=== PATIENT | male | born 1940 | race Two or more races ===

== ENCOUNTER → 2017-07-25 | Emergency (ER) | payer OTHER ==
[~2017-07-25] VITALS: Ht 185.4 cm; Wt 85.7 kg
[~2017-07-25] MED LIST: MUCINEX D1 TAB.SR1 PO; VASOTEC20 M1; ZITHROMAX500 MG PO; ZOCOR80 MG
== END | disposition left against medical advice (07) ==
LOC: ER 15:02
DX: Z53.20 Procedure and treatment not carried out because of patient's decision for unspecified reasons (principal)

== ENCOUNTER 2018-07-31 11:38 | Emergency (ER) | payer OTHER ==
[~2018-07-31] VITALS: Ht 185.4 cm; Wt 87.5 kg
[2018-07-31] MEDS ORDERED: SKELAXIN800 MG PO (16:12)
[2018-07-31] MEDS ORDERED: CELEBREX200MG PO (16:12)
== END 2018-07-31 17:52 | disposition home or self-care (01) ==
LOC: ER 11:38
DX: M46.82 Other specified inflammatory spondylopathies, cervical region (principal)

== ENCOUNTER 2019-01-26 18:24 | Emergency (ER) | payer OTHER ==
[~2019-01-26] VITALS: Ht 182.9 cm; Wt 83.9 kg
[~2019-01-26 18:24] MED LIST changes: +CELEBREX200MG PO; +SKELAXIN800 MG PO
[2019-01-26] MEDS ORDERED: PREDNISONE20 MG PO (21:21)
[2019-01-26] MEDS ORDERED: CYCLOBENZAPRINE10 MG PO (21:21)
== END 2019-01-26 21:32 ==
LOC: ER 18:24
DX: M50.30 Other cervical disc degeneration, unspecified cervical region (principal)

== ENCOUNTER 2019-03-24 13:04 | Outpatient (CLI) | payer OTHER ==
[~2019-03-24 13:04] MED LIST changes: +CYCLOBENZAPRINE10 MG PO; +PREDNISONE20 MG PO
== END 2019-03-24 13:07 | disposition home or self-care (01) ==
LOC: RAD 13:04
DX: I10 Essential (primary) hypertension (principal)

== ENCOUNTER 2023-06-02 13:51 | Emergency (ER) | payer OTHER ==
[~2023-06-02] VITALS: Ht 182.9 cm; Wt 81.6 kg
[~2023-06-02 13:51] MED LIST changes: +AMLODIPINE BESYL5 MG PO; +COLACE100 MG PO; +ELIQUIS5 MG PO; +INTEGRA PLUS C1 EACH PO; +KLOR-CON/EF 2525 MEQ PO; +LIPITOR40 M1 PO; +LOSARTAN POTAS100 MG PO; +MEMANTINE HCL E28 MG PO; +NAMENDA10 MG PO; +PANTOPRAZOLE SO20 MG PO; +PROTEINEX-18 LI30 ML PO; +SERTRALINE HCL50 MG PO; +SERTRALINE20 MG/1 ML PO; +SIMVASTATIN80 MG PO
[2023-06-02] MEDS ORDERED: LOSARTAN POTAS100 MG PO (14:37)
[2023-06-02] MEDS ORDERED: OLANZAPINE2.5 MG PO (14:37)
[2023-06-02] MEDS ORDERED: ENALAPRIL M1 MG/1 ML PO (14:38)
[2023-06-02] MEDS ORDERED: MEMANTINE HCL5 MG PO (14:39)
[2023-06-02] MEDS ORDERED: SERTRALINE20 MG/1 ML PO (14:39)
[2023-06-02] MEDS ORDERED: SIMVASTATIN80 MG PO (14:39)
[2023-06-02 16:14] LABS: HEMOGLOBIN 13.9 g/dL (13-16.00); MEAN CELL VOLUME 86.2 fL (80.0-100.00); MEAN CORPUSCULAR HEMOGLOBIN 29.2 pg (27.00-32.0); MEAN CORPUSCULAR HGB CONC 33.9 g/dl (32.0-36.0); PLATELET COUNT 147 K/uL (150-450); RED BLOOD COUNT 4.76 M/uL (4.00-6.00); RED CELL DISTRIBUTION WIDTH 15.2 % (11.5-14.5)
[2023-06-02 16:33] LABS: INR 1.12; PROTHROMBIN TIME 11.7 SECONDS (9.0-11.5)
[2023-06-02 16:45] LABS: ALBUMIN 3.6 gm/dL (3.4-5.0); BILIRUBIN TOTAL 0.46 mg/dL (0.3-1.2); BILIRUBIN,CONJUGATED 0.13 mg/dL (0.0-0.2); BILIRUBIN,UNCONJUGATED 0.33 mg/dL (0.0-0.6); CALCIUM 9.5 mg/dL (8.5-10.1); CREATININE SERUM 1.37 mg/dL (0.70-1.30); GFR 49.5; POTASSIUM 3.85 mEq/L (3.5-5.1); TOTAL PROTEIN 7.7 gm/dL (6.4-8.2)
[2023-06-02 18:06] LABS: D DIMER 20.71 MG/L; PARTIAL THROMBOPLASTIN TIME 24.3 SECONDS (22.0-34.0)
== END 2023-06-02 21:49 | disposition home or self-care (01) ==
LOC: ER
PROVIDERS: General Practice
DX: R55 Syncope and collapse (principal); I10 Essential (primary) hypertension; E78.00 Pure hypercholesterolemia, unspecified; Z95.0 Presence of cardiac pacemaker; K59.00 Constipation, unspecified; Z85.46 Personal history of malignant neoplasm of prostate; K62.89 Other specified diseases of anus and rectum

== ENCOUNTER 2023-06-08 15:50 | Emergency (ER) | payer OTHER ==
[~2023-06-08] VITALS: Ht 188 cm; Wt 77.1 kg
[~2023-06-08 15:50] MED LIST changes: +ENALAPRIL M1 MG/1 ML PO; +MEMANTINE HCL5 MG PO; +OLANZAPINE2.5 MG PO
[2023-06-08 18:07] LABS: HEMOGLOBIN 13.5 g/dL (13-16.00); MEAN CELL VOLUME 84.6 fL (80.0-100.00); MEAN CORPUSCULAR HEMOGLOBIN 28.7 pg (27.00-32.0); MEAN CORPUSCULAR HGB CONC 33.9 g/dl (32.0-36.0); PLATELET COUNT 158 K/uL (150-450); RED BLOOD COUNT 4.72 M/uL (4.00-6.00); RED CELL DISTRIBUTION WIDTH 15.6 % (11.5-14.5)
[2023-06-08 18:25] LABS: CALCIUM 9.3 mg/dL (8.5-10.1); CREATININE SERUM 1.19 mg/dL (0.70-1.30); GFR 58.24; POTASSIUM 4.14 mEq/L (3.5-5.1)
[2023-06-08 18:46] LABS: PH,URINE 5.5 (5.0-8.0); URINE APPEARANCE Clear; URINE BILIRRUBIN Small (NEGATIVE); URINE BLOOD Negative; URINE COLOR Dark Yellow; URINE GLUCOSE Negative (NEGATIVE); URINE LEUKOCYTE Negative; URINE NITRATE Negative; URINE PROTEIN 30 (NEGATIVE)
[2023-06-08 18:50] LABS: URINE BACTERIA 341.4 uL (0.0-1933); URINE EPITHELIAL CELLS 7.5 uL (0.0-38.8); URINE WBC 7.4 uL (0.0-23.2)
[2023-06-08 20:16] LABS: URINE CRYSTALS NEGATIVE /HPF; URINE YEAST NEGATIVE /hpf
[2023-06-08 20:17] LABS: URINE MUCUS SCANT
== END 2023-06-09 01:13 | disposition home or self-care (01) ==
LOC: ER 15:50
PROVIDERS: General Practice
DX: R00.2 Palpitations (principal); E78.00 Pure hypercholesterolemia, unspecified; I10 Essential (primary) hypertension; F01.50 Vascular dementia, unspecified severity, without behavioral disturbance, psychotic disturbance, mood disturbance, and anxiety; E86.0 Dehydration
CPT/HCPCS: 36415; 71045; 96365; 96366; 99284; J3490; J7042

== ENCOUNTER 2023-06-12 12:06 | Emergency (ER) | payer OTHER ==
[~2023-06-12] VITALS: Ht 182.9 cm; Wt 75.3 kg
[2023-06-12] MEDS ORDERED: ARIPIPRAZOLE2 MG PO (12:29)
[2023-06-12 15:48] LABS: HEMOGLOBIN 11.4 g/dL (13-16.00); MEAN CELL VOLUME 84.7 fL (80.0-100.00); MEAN CORPUSCULAR HEMOGLOBIN 28.3 pg (27.00-32.0); MEAN CORPUSCULAR HGB CONC 33.5 g/dl (32.0-36.0); PLATELET COUNT 185 K/uL (150-450); RED BLOOD COUNT 4.02 M/uL (4.00-6.00); RED CELL DISTRIBUTION WIDTH 15.1 % (11.5-14.5)
[2023-06-12 16:10] LABS: INR 1.22; PARTIAL THROMBOPLASTIN TIME 32.5 SECONDS (22.0-34.0); PROTHROMBIN TIME 12.6 SECONDS (9.0-11.5)
[2023-06-12 16:23] LABS: ALBUMIN 2.5 gm/dL (3.4-5.0); BILIRUBIN TOTAL 0.4 mg/dL (0.3-1.2); BILIRUBIN,CONJUGATED 0.12 mg/dL (0.0-0.2); BILIRUBIN,UNCONJUGATED 0.28 mg/dL (0.0-0.6); CALCIUM 8.7 mg/dL (8.5-10.1); CREATININE SERUM 0.93 mg/dL (0.70-1.30); GFR 77.41; POTASSIUM 3.57 mEq/L (3.5-5.1)
[2023-06-12 17:17] LABS: ABG PH 7.472 (7.35-7.45)
[2023-06-12 17:18] LABS: ABG PO2 74.7 mmHg (80-100); ABG pCO2 33.9 mmHg (35-45); BASE EXCESS 1.2 mmol/l; BICARBONATE 24.2 mmol/l (23-25); SaO2 95.9 %; Tco2 25.2 mmol/l; allen test SATISFACTORY; puncture site RADIAL LEFT
[2023-06-12 17:23] LABS: o2 21 %
== END 2023-06-13 02:02 | disposition home or self-care (01) ==
LOC: ER 12:06
PROVIDERS: General Practice
DX: R41.82 Altered mental status, unspecified (principal); F03.90 Unspecified dementia, unspecified severity, without behavioral disturbance, psychotic disturbance, mood disturbance, and anxiety; Z74.01 Bed confinement status; Z86.73 Personal history of transient ischemic attack (TIA), and cerebral infarction without residual deficits; J90 Pleural effusion, not elsewhere classified

== ENCOUNTER 2023-07-12 08:31 | Outpatient (CLI) | payer OTHER ==
[~2023-07-12 08:31] MED LIST changes: +ARIPIPRAZOLE2 MG PO
== END 2023-07-12 08:43 | disposition home or self-care (01) ==
LOC: TOM 08:31
PROVIDERS: ATTEND Internal Medicine
DX: I67.9 Cerebrovascular disease, unspecified (principal); F01.50 Vascular dementia, unspecified severity, without behavioral disturbance, psychotic disturbance, mood disturbance, and anxiety; I69.951 Hemiplegia and hemiparesis following unspecified cerebrovascular disease affecting right dominant side

== ENCOUNTER 2023-10-22 09:11 | Emergency (ER) | payer OTHER ==
[~2023-10-22] VITALS: Ht 177.8 cm; Wt 81.6 kg
[~2023-10-22 09:11] MED LIST changes: +ARICEPT5 MG PO; +BUSPIRONE HCL5 MG PO; +CHLORTHALIDONE25 MG PO; +CLONAZEPAM0.5 MG PO; +ELIQUIS2.5 MG PO; +ENALAPRIL MALEA10 MG PO; +HYOSCYAMINE0.125 M1 PO; +MECLIZINE HCL25 M1 PO; +MECLIZINE HCL25 MG PO; +OLANZAPINE-FLU1 EAC4 PO; +PEPCID AC20 MG PO; +SIMVASTATIN5 MG PO; +VASOTEC20 M1 PO; +ZOCOR80 MG PO
[2023-10-22 09:56] LABS: HEMATOCRIT 33.1 % (39.0-48.0); HEMOGLOBIN 11.1 g/dL (13-16.00); MEAN CELL VOLUME 86.5 fL (80.0-100.00); MEAN CORPUSCULAR HEMOGLOBIN 29.2 pg (27.00-32.0); MEAN CORPUSCULAR HGB CONC 33.7 g/dl (32.0-36.0); PLATELET COUNT 180 K/uL (150-450); RED BLOOD COUNT 3.82 M/uL (4.00-6.00); RED CELL DISTRIBUTION WIDTH 15.1 % (11.5-14.5)
[2023-10-22 10:30] LABS: BILIRUBIN TOTAL 0.27 mg/dL (0.3-1.2); CALCIUM 8.9 mg/dL (8.5-10.1); CREATININE SERUM 1.2 mg/dL (0.70-1.30); GFR 57.54; GLOBULINA 4.1 G/DL (2.4-3.5); POTASSIUM 3.9 mEq/L (3.5-5.1); TOTAL PROTEIN 7.1 gm/dL (6.4-8.2)
== END 2023-10-22 11:41 | disposition home or self-care (01) ==
LOC: ER 09:11
PROVIDERS: General Practice
DX: R55 Syncope and collapse (principal)

== ENCOUNTER 2023-10-26 07:14 | Emergency (ER) | payer OTHER ==
[~2023-10-26] VITALS: Ht 170.2 cm; Wt 68.0 kg
[2023-10-26] MEDS ORDERED: RISPERDAL0.5 MG (07:24)
[2023-10-26 09:05] LABS: HEMATOCRIT 32.7 % (39.0-48.0); HEMOGLOBIN 10.8 g/dL (13-16.00); MEAN CELL VOLUME 85.9 fL (80.0-100.00); MEAN CORPUSCULAR HEMOGLOBIN 28.5 pg (27.00-32.0); MEAN CORPUSCULAR HGB CONC 33.2 g/dl (32.0-36.0); PLATELET COUNT 180 K/uL (150-450); RED CELL DISTRIBUTION WIDTH 15.4 % (11.5-14.5)
[2023-10-26 09:40] LABS: CALCIUM 9.2 mg/dL (8.5-10.1); CREATININE SERUM 1.28 mg/dL (0.70-1.30); GFR 53.41; POTASSIUM 3.94 mEq/L (3.5-5.1)
== END 2023-10-26 13:32 | disposition home or self-care (01) ==
LOC: ER 07:14
PROVIDERS: General Practice
DX: R53.81 Other malaise (principal); T50.905A Adverse effect of unspecified drugs, medicaments and biological substances, initial encounter

== ENCOUNTER 2024-01-18 02:55 | Emergency (ER) | payer OTHER ==
[~2024-01-18] VITALS: Ht 188 cm; Wt 81.6 kg
[~2024-01-18 02:55] MED LIST changes: +RISPERDAL0.5 MG
[2024-01-18 04:41] LABS: HEMATOCRIT 38.7 % (39.0-48.0); HEMOGLOBIN 12.9 g/dL (13-16.00); MEAN CORPUSCULAR HEMOGLOBIN 27.9 pg (27.00-32.0); MEAN CORPUSCULAR HGB CONC 33.3 g/dl (32.0-36.0); PLATELET COUNT 136 K/uL (150-450); RED BLOOD COUNT 4.61 M/uL (4.00-6.00); RED CELL DISTRIBUTION WIDTH 15.2 % (11.5-14.5)
== END 2024-01-18 12:51 | disposition home or self-care (01) ==
LOC: ER 02:55
DX: J06.9 Acute upper respiratory infection, unspecified (principal); G30.8 Other Alzheimer's disease; F02.80 Dementia in other diseases classified elsewhere, unspecified severity, without behavioral disturbance, psychotic disturbance, mood disturbance, and anxiety; I10 Essential (primary) hypertension; Z20.822 Contact with and (suspected) exposure to COVID-19

== ENCOUNTER 2025-02-11 14:23 | Inpatient (IN) | payer OTHER ==
[~2025-02-11] VITALS: Ht 264.2 cm; Wt 81.6 kg
--- NOTE | 2025-02-11 14:32 | NUR ---
SE RECIBE PACIENTE EN AMBULANCIA ALERTA Y DESORIENTADO X3; PARAMEDICO INDICAN QUE LO TRAEN POR DOLRO ABDOMINAL, VOMITOS X1 Y DISTENCION ADOMINAL. SE REALIZA EKG Y KRISTEN DE SIGNOS VITALES. PACIENTE PRESETANDO SPO2 94% DRA. MULLINS INDICA COLOCAR CANULA NASAL @2LT/MIN.
[2025-02-11] MEDS ORDERED: FAMOtidine 10 MG/ML (4ML VIAL) IV ONE (14:45)
[2025-02-11] MEDS ORDERED: 0.9 % SODIUM CHLORIDE 1,000 ML IV ONE (14:45)
[2025-02-11] MEDS ORDERED: FAMOTIDINE/PF 20 MG/2 ML VIAL ONE (15:09)
--- NOTE | 2025-02-11 15:10 | NUR ---
SE EDUCA ACERCA DE TX ORDENADO; SE CANALIZA Y COLECTAN MUESTRAS DE LABORATORIO MEDIANTE MEDIDAS ASEPTICAS. SE ADMINISTRNA MEDICAMENTOS ADITI ORDEN MEDICA.
[2025-02-11 15:34] LABS: ALT/SGPT 21.0 U/L (12-78); AST/SGOT 21.0 U/L (15-37); BILIRUBIN TOTAL 0.58 mg/dL (0.3-1.2); BUN CREA RATIO 21.0 (7.0-25.0); CREATININE SERUM 1.24 mg/dL (0.70-1.30); GFR 55.27; GLOBULINA 4.4 G/DL (2.4-3.5); GLUCOSE FASTING 123.0 mg/dL (65-100); OSMOLALITY SERUM 291.0 MOSM/KG (275-295)
[2025-02-11 15:47] LABS: BASO % 0.4 % (0.1-1.2); EOS # 0.09 (0.04-0.54); EOS % 0.7 % (0.7-7.0); LYMPH # 1.59 (1.18-3.74); LYMPH % 12.4 % (19.3-53.1); MEAN PLATELET VOLUME 10.30 fl (9.4-12.4); MONO # 0.92 (0.24-0.82); MONO % 7.2 % (4.7-12.5); NEUT # 10.11 (1.56-6.13); NEUT % 78.5 % (34.0-71.1); RED CELL DISTRIBUTION WIDTH 14.8 % (11.6-14.4)
[2025-02-11 15:55] LABS: COVID-19 AG NEGATIVE (NEGATIVE)
[2025-02-11] MEDS ORDERED: CIPROFLOXACIN IN 5 % DEXTROSE 400 MG/200 ML PIGGYBAG IV ONE ×2 (16:00→16:07)
[2025-02-11 16:58] LABS: URINE APPEARANCE Clear; URINE BILIRRUBIN Negative (NEGATIVE); URINE COLOR Yellow; URINE GLUCOSE Negative (NEGATIVE); URINE KETONE Trace (NEGATIVE); URINE LEUKOCYTE Negative; URINE NITRATE Negative; URINE UROBILINOGEN 0.2 E.U./dl
[2025-02-11 17:02] LABS: URINE BACTERIA 16.8 uL (0.0-1933); URINE CAST 0.58 uL (0.0-1.40); URINE EPITHELIAL CELLS 1.6 uL (0.0-38.8); URINE PROTEIN 100 (NEGATIVE); URINE RBC 8.2 uL (0.0-20.8); URINE WBC 4.9 uL (0.0-23.2)
[2025-02-11 17:08] LABS: URINE BLOOD TRACE
[2025-02-11 17:10] LABS: URINE YEAST NEGATIVE /hpf
[2025-02-11] MEDS ORDERED: FAMOTIDINE/PF 20 MG in 0.9 % SODIUM CHLORIDE 8 ML IV PUSH SCH (21:55)
[2025-02-11] MEDS ORDERED: CIPROFLOXACIN IN 5 % DEXTROSE 200 ML IV SCH (21:56)
[2025-02-11] MEDS ORDERED: DONEPEZIL HCL 5 MG TABLET PO SCH (21:57)
[2025-02-11] MEDS ORDERED: ONDANSETRON HCL 4 MG in 0.9 % SODIUM CHLORIDE 50 ML IV PRN (22:00)
[2025-02-11] MEDS ORDERED: 0.9 % SODIUM CHLORIDE 1,000 ML IV SCH (22:00)
[2025-02-11] MEDS ORDERED: ACETAMINOPHEN 500 MG GEL..CAP PO PRN (22:00)
[2025-02-12 03:32] LABS: INR 1.15
[2025-02-12 06:05] LABS: ABG PH 7.331 (7.35-7.45); ABG PO2 113.0 mmHg (80-100); BICARBONATE 21.1 mmol/l (23-25)
[2025-02-12 06:06] LABS: o2 36 %
[2025-02-12 08:27] VITALS: BP 147/82; O2SAT 96
[2025-02-12] MEDS ORDERED: ENOXAPARIN SODIUM 40 MG/0.4 ML SYRINGE SUBCUTANEO SCH (09:00)
[2025-02-12] MEDS ORDERED: RISPERIDONE 0.5 MG TABLET PO SCH (09:00)
[2025-02-12] MEDS ORDERED: AMLODIPINE BESYLATE 5 MG TABLET PO SCH ×2 (09:00→17:00)
[2025-02-12] MEDS ORDERED: BUSPIRONE HCL 5 MG TABLET PO SCH (09:00)
[2025-02-12] MEDS ORDERED: MEMANTINE HCL 5 MG TABLET PO SCH (09:00)
[2025-02-12] MEDS ORDERED: LORazepam 2 MG/ML VIAL IM STA (09:11)
[2025-02-12 10:38] VITALS: O2SAT 90
[2025-02-12] MEDS ORDERED: POTASSIUM BICARBONATE/CIT AC 25 MEQ TABLET.EFF PO NR (11:00)
[2025-02-12 12:30] VITALS: O2SAT 99
[2025-02-12] MEDS ORDERED: DEXTROSE 50 % IN WATER 0.5 G/ML VIAL IV PRN (15:30)
[2025-02-12] MEDS ORDERED: INSULIN LISPRO 1,000 UNIT/10 ML UNITS SUBCUTANEO PRN (15:30)
[2025-02-12] MEDS ORDERED: SODIUM CHLORIDE 0.45 % 1,000 ML IV SCH (15:30)
[2025-02-12] MEDS ORDERED: LOSARTAN POTASSIUM 25 MG TABLET PO SCH (16:15)
[2025-02-12 16:23] VITALS: BP 125/73; O2SAT 96
[2025-02-12] MEDS ORDERED: DOCUSATE SODIUM 100MG CAP PO SCH (17:00)
[2025-02-12] MEDS ORDERED: POLYETHYLENE GLYCOL 3350 17 GM BLIST.PACK PO SCH (17:00)
[2025-02-12 19:25] VITALS: O2SAT 90
[2025-02-12 19:29] LABS: ABG PH 7.371 (7.35-7.45)
[2025-02-12 19:30] LABS: ABG PO2 83.8 mmHg (80-100); BICARBONATE 22.5 mmol/l (23-25)
[2025-02-12 19:31] LABS: o2 21 %
[2025-02-12] MEDS ORDERED: ARIPIPRAZOLE 5 MG PO SCH (21:00)
[2025-02-13 00:35] VITALS: O2SAT 95
[2025-02-13 01:07] VITALS: BP 123/66; O2SAT 97
[2025-02-13 06:29] VITALS: O2SAT 99
[2025-02-13 08:00] VITALS: BP 113/66; O2SAT 98
[2025-02-13 08:30] VITALS: O2SAT 100
[2025-02-13] MEDS ORDERED: [UNRECOGNIZED DRUG - OTHER] PO SCH (09:00)
[2025-02-13] MEDS ORDERED: SITAGLIPTIN PO SCH (09:00)
[2025-02-13] MEDS ORDERED: ATORVASTATIN CALCIUM 10 MG TABLET PO SCH (09:00)
[2025-02-13 17:00] VITALS: BP 124/69; O2SAT 97
[2025-02-14] VITALS (7 sets, daily range): BP systolic 125–133; BP diastolic 74–76; O2SAT 87–99
[2025-02-14 08:52] LABS: ALT/SGPT 15.0 U/L (12-78); AST/SGOT 16.0 U/L (15-37); BILIRUBIN TOTAL 0.58 mg/dL (0.3-1.2); BUN CREA RATIO 10.0 (7.0-25.0); CREATININE SERUM 0.94 mg/dL (0.70-1.30); GFR 76.09; GLOBULINA 3.1 G/DL (2.4-3.5); GLUCOSE FASTING 91.0 mg/dL (65-100); OSMOLALITY SERUM 285.0 MOSM/KG (275-295)
[2025-02-14] MEDS ORDERED: POTASSIUM BICARBONATE/CIT AC 25 MEQ TABLET.EFF PO SCH (09:00)
[2025-02-14 09:04] LABS: BASO % 0.5 % (0.1-1.2); EOS # 0.29 (0.04-0.54); EOS % 4.5 % (0.7-7.0); LYMPH # 1.41 (1.18-3.74); LYMPH % 21.8 % (19.3-53.1); MEAN PLATELET VOLUME 10.30 fl (9.4-12.4); MONO # 0.56 (0.24-0.82); MONO % 8.6 % (4.7-12.5); NEUT # 4.16 (1.56-6.13); NEUT % 64.1 % (34.0-71.1); RED CELL DISTRIBUTION WIDTH 14.1 % (11.6-14.4)
[2025-02-14] MEDS ORDERED: MAGNESIUM SULFATE IN WATER 50 ML IV NR (09:30)
[2025-02-14] MEDS ORDERED: POTASSIUM CHLORIDE 20MEQ/100ML H2O PB IV NR (10:30)
[2025-02-15 00:21] VITALS: BP 122/71; O2SAT 95
[2025-02-15 02:21] VITALS: O2SAT 98
[2025-02-15 06:24] LABS: BASO % 0.5 % (0.1-1.2); EOS # 0.26 (0.04-0.54); EOS % 4.4 % (0.7-7.0); LYMPH # 1.70 (1.18-3.74); LYMPH % 28.8 % (19.3-53.1); MEAN PLATELET VOLUME 10.20 fl (9.4-12.4); MONO # 0.63 (0.24-0.82); MONO % 10.7 % (4.7-12.5); NEUT # 3.27 (1.56-6.13); NEUT % 55.3 % (34.0-71.1); RED CELL DISTRIBUTION WIDTH 14.1 % (11.6-14.4)
[2025-02-15 07:07] LABS: ALT/SGPT 18.0 U/L (12-78); AST/SGOT 27.0 U/L (15-37); BILIRUBIN TOTAL 0.45 mg/dL (0.3-1.2); BUN CREA RATIO 5.0 (7.0-25.0); CREATININE SERUM 0.98 mg/dL (0.70-1.30); GFR 72.52; GLOBULINA 3.0 G/DL (2.4-3.5); GLUCOSE FASTING 123.0 mg/dL (65-100); OSMOLALITY SERUM 285.0 MOSM/KG (275-295)
[2025-02-15 07:45] LABS: BAND MAN 1.0 %; EOSINOPHIL MAN 2.0 %; LYMPHOCYTE MAN 33.0 %; MONOCYTE MAN 5.0 %; NEUTROPHILS MAN 58.0 %
[2025-02-15 08:26] VITALS: BP 161/82; O2SAT 97
[2025-02-15] MEDS ORDERED: POTASSIUM BICARBONATE/CIT AC 25 MEQ TABLET.EFF PO NR (11:32)
[2025-02-15] MEDS ORDERED: POTASSIUM CHLORIDE IN WATER 100 ML IV SCH (13:00)
[2025-02-15 16:00] VITALS: BP 143/78; O2SAT 97
[2025-02-15 18:03] VITALS: O2SAT 97
[2025-02-16] VITALS (8 sets, daily range): BP systolic 130–152; BP diastolic 77–84; O2SAT 95–100
[2025-02-16 07:10] LABS: BASO % 0.5 % (0.1-1.2); EOS # 0.32 (0.04-0.54); EOS % 5.2 % (0.7-7.0); LYMPH # 1.71 (1.18-3.74); LYMPH % 28.0 % (19.3-53.1); MEAN PLATELET VOLUME 9.80 fl (9.4-12.4); MONO # 0.59 (0.24-0.82); MONO % 9.7 % (4.7-12.5); NEUT # 3.43 (1.56-6.13); NEUT % 56.3 % (34.0-71.1); RED CELL DISTRIBUTION WIDTH 14.1 % (11.6-14.4)
[2025-02-16 07:46] LABS: ALT/SGPT 71.0 U/L (12-78); AST/SGOT 144.0 U/L (15-37); BAND MAN 1.0 %; BILIRUBIN TOTAL 0.5 mg/dL (0.3-1.2); BUN CREA RATIO 5.0 (7.0-25.0); CREATININE SERUM 0.83 mg/dL (0.70-1.30); EOSINOPHIL MAN 2.0 %; GFR 87.84; GLOBULINA 3.2 G/DL (2.4-3.5); GLUCOSE FASTING 95.0 mg/dL (65-100); LYMPHOCYTE MAN 21.0 %; MONOCYTE MAN 9.0 %; NEUTROPHILS MAN 65.0 %; OSMOLALITY SERUM 280.0 MOSM/KG (275-295)
[2025-02-16] MEDS ORDERED: MAGNESIUM SULFATE IN WATER 50 ML IV NR (10:35)
[2025-02-16] MEDS ORDERED: POTASSIUM CHLORIDE IN WATER 100 ML IV NR (12:00)
[2025-02-16] MEDS ORDERED: MAGNESIUM HYDROXIDE 30 ML BLIST.PACK PO STA (12:38)
[2025-02-16] MEDS ORDERED: MINERAL OIL 30 ML BLIST.PACK PO STA (12:38)
[2025-02-16] MEDS ORDERED: LACTULOSE 20 G/30 ML BLIST.PACK PO STA (12:38)
[2025-02-16] MEDS ORDERED: NA PHOS,M-B/NA PHOS,DI-BA 1 BOTTLE ENEMA RECTAL NR (12:45)
[2025-02-16] MEDS ORDERED: POTASSIUM PHOS,M-BASIC-D-BASIC 15 MM in 0.9 % SODIUM CHLORIDE 250 ML IV NR (16:00)
[2025-02-17] VITALS (9 sets, daily range): BP systolic 114–163; BP diastolic 67–71; O2SAT 94–99
[2025-02-17 05:56] LABS: ALT/SGPT 95.0 U/L (12-78); AST/SGOT 160.0 U/L (15-37); BILIRUBIN TOTAL 0.4 mg/dL (0.3-1.2); BUN CREA RATIO 6.0 (7.0-25.0); CREATININE SERUM 0.83 mg/dL (0.70-1.30); GFR 87.84; GLOBULINA 3.0 G/DL (2.4-3.5); GLUCOSE FASTING 84.0 mg/dL (65-100); OSMOLALITY SERUM 280.0 MOSM/KG (275-295)
[2025-02-17 07:23] LABS: BASO % 0.2 % (0.1-1.2); EOS # 0.21 (0.04-0.54); EOS % 2.6 % (0.7-7.0); LYMPH # 1.36 (1.18-3.74); LYMPH % 17.0 % (19.3-53.1); MEAN PLATELET VOLUME 9.20 fl (9.4-12.4); MONO # 0.65 (0.24-0.82); MONO % 8.1 % (4.7-12.5); NEUT # 5.75 (1.56-6.13); NEUT % 71.7 % (34.0-71.1); RED CELL DISTRIBUTION WIDTH 14.3 % (11.6-14.4)
[2025-02-17] MEDS ORDERED: POTASSIUM CHLORIDE IN WATER 100 ML IV NR (11:30)
[2025-02-17] MEDS ORDERED: POTASSIUM BICARBONATE/CIT AC 25 MEQ TABLET.EFF PO SCH (13:00)
[2025-02-18 00:30] VITALS: BP 134/72; O2SAT 95
[2025-02-18 05:34] VITALS: O2SAT 98
[2025-02-18 08:49] VITALS: BP 137/61; O2SAT 95
[2025-02-18 16:07] VITALS: BP 144/75; O2SAT 94
[2025-02-19 01:24] VITALS: BP 146/79; O2SAT 97
[2025-02-19 07:09] LABS: BASO % 0.5 % (0.1-1.2); EOS # 0.23 (0.04-0.54); EOS % 3.7 % (0.7-7.0); LYMPH # 1.55 (1.18-3.74); LYMPH % 25.1 % (19.3-53.1); MEAN PLATELET VOLUME 9.70 fl (9.4-12.4); MONO # 0.72 (0.24-0.82); MONO % 11.7 % (4.7-12.5); NEUT # 3.63 (1.56-6.13); NEUT % 58.7 % (34.0-71.1); RED CELL DISTRIBUTION WIDTH 14.5 % (11.6-14.4)
[2025-02-19 07:52] LABS: ALT/SGPT 96.0 U/L (12-78); AST/SGOT 109.0 U/L (15-37); BILIRUBIN TOTAL 0.39 mg/dL (0.3-1.2); BUN CREA RATIO 5.0 (7.0-25.0); CREATININE SERUM 0.93 mg/dL (0.70-1.30); GFR 77.04; GLOBULINA 3.0 G/DL (2.4-3.5); GLUCOSE FASTING 102.0 mg/dL (65-100); OSMOLALITY SERUM 284.0 MOSM/KG (275-295)
[2025-02-19] MEDS ORDERED: AMLODIPINE BESYL5 MG PO (13:58)
[2025-02-19] MEDS ORDERED: ARICEPT5 MG PO (13:58)
[2025-02-19] MEDS ORDERED: ATORVASTATIN CA10 MG PO (13:58)
[2025-02-19] MEDS ORDERED: BUSPIRONE HCL5 MG PO (13:59)
[2025-02-19] MEDS ORDERED: LOSARTAN POTASS25 MG PO (13:59)
[2025-02-19] MEDS ORDERED: MEMANTINE HCL5 MG PO (13:59)
[2025-02-19] MEDS ORDERED: POTASSIUM CHLO20 ME1 PO (14:00)
[2025-02-19] MEDS ORDERED: POTASSIUM BICARBONATE/CIT AC 25 MEQ TABLET.EFF PO SCH (17:00)
== END 2025-02-19 18:25 | disposition home or self-care (01) | DRG 386 ==
LOC: ER 14:50 → SURH 22:28 → SEC-K 22:28 → SURH 02-12 00:36 → O/R 02-17 09:16 → SURH 02-17 09:17
PROVIDERS: General Practice; Internal Medicine; ADMIT Internal Medicine; ATTEND Internal Medicine
PROC: BW21YZZ Computerized Tomography (CT Scan) of Abdomen and Pelvis using Other Contrast (ICD-10-PCS; principal; 2025-02-11)
PROC: 4A12X4Z Monitoring of Cardiac Electrical Activity, External Approach (ICD-10-PCS; 2025-02-12)
DX: K51.30 Ulcerative (chronic) rectosigmoiditis without complications (principal); F02.818 Dementia in other diseases classified elsewhere, unspecified severity, with other behavioral disturbance; K31.1 Adult hypertrophic pyloric stenosis; N17.9 Acute kidney failure, unspecified; K62.7 Radiation proctitis; E78.5 Hyperlipidemia, unspecified; I10 Essential (primary) hypertension; E87.6 Hypokalemia; G30.9 Alzheimer's disease, unspecified

== ENCOUNTER 2025-06-21 11:22 | Emergency (ER) | payer OTHER ==
[~2025-06-21] VITALS: Ht 182.9 cm; Wt 81.6 kg
[~2025-06-21 11:22] MED LIST changes: +ATORVASTATIN CA10 MG PO; +LOSARTAN POTASS25 MG PO; +POTASSIUM CHLO20 ME1 PO
[2025-06-21] MEDS ORDERED: AZOR 5-40 MG T1 EACH (12:30)
[2025-06-21] MEDS ORDERED: ARICEPT10 MG PO (12:30)
[2025-06-21] MEDS ORDERED: JANUVIA50 MG PO (12:30)
[2025-06-21] MEDS ORDERED: SERTRALINE HCL25 MG PO (12:30)
[2025-06-21] MEDS ORDERED: BUSPIRONE HCL10 MG PO (12:31)
[2025-06-21] MEDS ORDERED: ABILIFY5 MG PO (12:31)
[2025-06-21] MEDS ORDERED: 0.9 % SODIUM CHLORIDE 1,000 ML IV ONE (14:00)
[2025-06-21] MEDS ORDERED: LORazepam 2 MG/ML VIAL IV ONE (14:00)
[2025-06-21 15:15] LABS: BASO % 0.5 % (0.1-1.2); EOS # 0.04 (0.04-0.54); EOS % 0.5 % (0.7-7.0); LYMPH # 0.75 (1.18-3.74); LYMPH % 9.7 % (19.3-53.1); MEAN PLATELET VOLUME 9.70 fl (9.4-12.4); MONO # 0.46 (0.24-0.82); MONO % 6.0 % (4.7-12.5); NEUT # 6.42 (1.56-6.13); NEUT % 83.0 % (34.0-71.1); RED CELL DISTRIBUTION WIDTH 14.6 % (11.6-14.4)
[2025-06-21 15:43] LABS: INR 1.07
[2025-06-21 15:52] LABS: ALT/SGPT 25.0 U/L (12-78); AST/SGOT 14.0 U/L (15-37); BILIRUBIN TOTAL 0.31 mg/dL (0.3-1.2); BUN CREA RATIO 23.0 (7.0-25.0); CREATININE SERUM 1.13 mg/dL (0.70-1.30); GFR 61.53; GLOBULINA 3.7 G/DL (2.4-3.5); GLUCOSE FASTING 121.0 mg/dL (65-100); OSMOLALITY SERUM 289.0 MOSM/KG (275-295)
== END 2025-06-21 20:57 | disposition home or self-care (01) ==
LOC: ER 11:22
DX: R55 Syncope and collapse (principal); F03.90 Unspecified dementia, unspecified severity, without behavioral disturbance, psychotic disturbance, mood disturbance, and anxiety; E86.0 Dehydration; I10 Essential (primary) hypertension
CPT/HCPCS: 36415; 70450; 93005; 96365; 96366; 99283; J3490; J7030